=== PATIENT | male | born 1955 | race Caucasian/White ===

== ENCOUNTER → 2018-08-12 | Outpatient (REF) | payer BC, MEDICARE ==
[~2018-08-12] MED LIST: ACET500T68 PO; ASCO-191 PO; ASPI-1403 PO; ASPI81TA60; ATOR20TA22 PO; CHOL200021 PO; FLAX100038 PO; FURO20TA19 PO; IPRA3AMP37 IH; LEVO-85 PO; LIS5 PO; METO100T20 PO; METXL50 PO; MULT-1367 PO; PAN20 PO; PRED20TA6 PO; UBID1CAP94 PO; [UNRECOGNIZED DRUG - CODE] PO; oxygen INH
== END ==
LOC: ZZSENDIN 12:00
PROVIDERS: ATTEND Physician Assistant
DX: L82.1 Other seborrheic keratosis (principal); C44.519 Basal cell carcinoma of skin of other part of trunk
CPT/HCPCS: 88305

== ENCOUNTER → 2018-08-25 | Outpatient (REF) | payer MEDICARE | LOC: ZZSENDIN 12:00 | PROVIDERS: ATTEND Physician Assistant | DX: L57.0 Actinic keratosis (principal) | CPT/HCPCS: 88305 ==